=== PATIENT | male | born 1990 | race African-American/Black ===

== ENCOUNTER 2017-08-05 11:01 | Emergency (ER) | payer MEDICAID ==
[2017-08-05 11:04] VITALS: BMI 34.9
[2017-08-05 11:05] VITALS: BP 141/89
[2017-08-05] MEDS ORDERED: DUONEB 0.5 MG/3 MG ONE (11:07)
[2017-08-05] MEDS ORDERED: DUONEB 0.5 MG/3 MG NEB ONE (11:10)
--- NOTE | 2017-08-05 11:44 | DR.GENAD ---
HPI - PCP Primary Care Physician: brock - Complaint/Symptoms Chief Complaint Doctors Comments: Patient presented to the ED with complaint of asthma problems onset while at work. 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 Patient with a history of asthma Chief Complaint:: was working with onions today at work and it flared up his asthma - Source History Provided: Patient - Mode of Arrival Mode of Arrival: Ambulatory - Timing Onset of Chief Complaint: 08/05/17 PMH - PMH Past Medical History: Yes Past Medical History: Asthma, Diabetes Past Surgical History: Yes Surgical History: Tonsillectomy - Family History History of Family Medical Conditions: Yes Family Medical History: Diabetes Mellitus, Cancer, Hypertension - Social History Does patient currently use any type of tobacco product: No Have you used tobacco products in the last 12 months: No Type of Tobacco Use: None Does any household member use tobacco: Yes Alcohol Use: Rarely Do you use any recreational Drugs:: No Lives With: Family Lives Where: Home - infectious screening In the last 2 months have you had wt loss of >10#?: NO Have you had fever, night sweats or hemotysis?: No Have you traveled outside the country in the last 6 months?: No Isolation: Standard ROS - Review of Systems Eyes: Tearing, Other (red conjunctiva) ENTM: No Symptoms Reported Respiratoy: Wheezing Cardiovascular: No Symptoms Reported Gastrointestinal/Abdominal: No Symptoms Reported Genitourinary: No Symptoms Reported Neurological: No Symptoms Reported Musculoskeletal: No Symptoms Reported Integumentary: No Symptoms Reported Hematologic/Lymphatic: No Symptoms Reported Endocrine: No Symptoms Reported Psychiatric: No Symptoms Reported All Other Systems: Reviewed and Negative PE - Vital Signs Vitals: Temperature 98.6 F Pulse Rate 64 Respiratory Rate 16 Blood Pressure [Left Arm] 128/75 Blood Pressure 141/89 O2 Sat by Pulse Oximetry 99 - General Limitations: No Limitations General Appearance: Alert, Anxious - Head Head Exam: Normal Inspection, Atraumatic - Eyes Eye exam: PERRL, EOMI, Conjunctival Injection - ENT ENT Exam: Normal Exam External Ear Exam: Normal External Inspection TM/Canal Exam: Bilateral Normal Nose Exam: Normal Nose Exam Mouth Exam: Normal Inspection Throat Exam: Normal Inspection - Neck Neck Exam: Normal Inspection, Full ROM - Chest Chest Inspection: Normal Inspection - Respiratory Respiratory Exam: Prolonged Expiratory Phase. negative: Accessory Muscle Use, Chest Wall Tenderness Respiratory Exam: Bilateral Wheezing (expiratory) - Cardiovascular Cardiovascular Exam: Regular Rate, Normal Rhythm - Abdominal Exam Abdominal Exam: Normal Inspection, Normal Bowel Sounds Abdominal Tenderness: negative: RUQ, RLQ, LUQ, LLQ, Epigastrium, Suprapubic, Diffuse, Mild, Moderate, Severe, Other - Extremities Extremities Exam: Normal Inspection, Full ROM - Back Back Exam: Normal Inspection - Neurologic Neurological Exam: Alert, Oriented X3, CN II-XII Intact - Psychiatric Psychiatric Exam: Normal Affect - Skin Skin Exam: Warm, Dry, Intact Course - Treatment Treatment: Albuterol/ipatropium treatment x 1 - Reevaluation 1st: Improved - Diagnosis Discharge Problem: Asthma exacerbation - Discharge Plan Condition: Stable - Follow ups/Referrals Follow ups/Referrals: Gabriela ALVARADO [Primary Care Provider] - 3 days - Instructions
== END 2017-08-05 11:57 | disposition home or self-care (01) ==
LOC: ER 11:15
DX: J44.1 Chronic obstructive pulmonary disease with (acute) exacerbation (principal)
CPT/HCPCS: 80305; 99282; J7620